=== PATIENT | female | born 1975 | race Caucasian/White ===

== ENCOUNTER 2018-01-08 10:10 | Emergency (ER) | payer MEDICARE ==
[~2018-01-08] VITALS: Ht 154.9 cm; Wt 54.5 kg
[~2018-01-08 10:10] MED LIST: HYDROCODON-ACE1 EAC7 PO; HYDROCODONE-APA1 TAB PO; IBUPROFEN600 MG PO; PERCOCET 10/3251 TA1 PO
[2018-01-08 10:25] VITALS: BP 140/84; Ht 154.9 cm; Wt 54.5 kg
[2018-01-08] MEDS ORDERED: LYRICA150 MG PO (10:29)
[2018-01-08] MEDS ORDERED: HYZAAR 50-12.51 TAB PO (10:29)
[2018-01-08] MEDS ORDERED: ZOLOFT50 MG PO (10:30)
[2018-01-08] MEDS ORDERED: CLONAZEPAM1 MG/TAB PO (10:30)
[2018-01-08] MEDS ORDERED: ULTRAM50 MG PO (10:31)
[2018-01-08 12:46] LABS: APPEARANCE CLEAR (CLEAR); BILIRUBIN NEGATIVE (NEGATIVE); COLOR YELLOW (YELLOW); GLUCOSE NEGATIVE (NEGATIVE); KETONE NEGATIVE (NEGATIVE); NITRITE NEGATIVE (NEGATIVE); PROTEIN NEGATIVE (NEGATIVE); UROBILINOGEN NORMAL (NORMAL)
[2018-01-08 12:47] LABS: BACTERIA NONE SEEN /hpf (NONE SEEN); EPITHELIAL CELLS 0-5 /hpf (0-5); RED CELLS - URINE 0-5 /hpf (0-5); WHITE CELLS - URINE 0-5 /hpf (0-5)
[2018-01-08 12:51] LABS: BASOPHILS 0.3 % (0-2); EOSINOPHILS 0.4 % (0-7); HEMOGLOBIN 13.5 g/dL (12-16); IMMATURE GRANULOCYTES 2.4 % (0-5); LYMPHOCYTES 36.3 % (15-50); MCH 34.1 pg (26.0-34.0); MCHC 33.8 g/dL (31.0-37.0); MEAN PLATELET VOLUME 9.6 fL (7.4-10.4); MONOCYTES 6.6 % (2-11); RBC 3.96 10x6/uL (4.00-5.40); WBC 11.9 10x3/uL (4.8-10.8)
[2018-01-08 13:03] LABS: PLATELET COUNT 275 10x3/uL (130-400)
[2018-01-08 13:13] LABS: ALKALINE PHOSPHATASE 135 U/L (46-116); ALT (SGPT) 53 U/L (10-68); BILIRUBIN - TOTAL 0.21 mg/dL (0.2-1.3); CALC OSMOLALITY 284 mosm/kg (275-300); CALCIUM 9.2 mg/dL (8.5-10.1); CARBON DIOXIDE 29.2 mmol/L (21.0-32.0); CHLORIDE - SERUM 102 mmol/L (98-107); CREATININE - SERUM 0.8 mg/dL (0.6-1.3); GLUCOSE 100 mg/dL (74-106); POTASSIUM - SERUM 3.5 mmol/L (3.5-5.1); PROTEIN - SERUM 7.7 g/dL (6.4-8.2); SODIUM 142 mmol/L (136-145); UREA NITROGEN 19 mg/dL (7-18); eGFR NON AFRICAN AMERICAN 84 mL/min (90-120)
[2018-01-08 13:15] LABS: C-REACTIVE PROTEIN < 0.2 mg/dL (0.0-0.9)
[2018-01-08] MEDS ORDERED: TORADOL10 MG PO (13:37)
[2018-01-08] MEDS ORDERED: STERAPRED DS 1010 MG PO (13:37)
[2018-01-08 14:44] LABS: ERYTHROCYTE SEDIMENTATION RATE 35 mm/hr (0-20)
== END 2018-01-08 14:11 | disposition home or self-care (01) ==
LOC: D.ER 10:10
PROVIDERS: Emergency Medicine
DX: M02.30 Reiter's disease, unspecified site (principal); M25.572 Pain in left ankle and joints of left foot; M25.571 Pain in right ankle and joints of right foot; M25.562 Pain in left knee; M25.561 Pain in right knee; M54.5 Low back pain; F17.200 Nicotine dependence, unspecified, uncomplicated